=== PATIENT | male | born 1965 | race Caucasian/White ===

== ENCOUNTER 2016-08-14 10:45 | Emergency (ER) | payer MEDICARE ==
--- NOTE | ~2016-08-14 | CR181 ---
[facility] A Service of [facility] & [facility] RADIOLOGY TEXT RESULTS PATIENT: GREGORIO HARTMANN SR. LOCATION: SED : 67 UNIT #: [id number] AGE: [address]: Joanne Sepulveda SEX: M ORDER DR: [id number] [address] [address] [id number] MR#: [id number] Acc #: [id number] NAME: GREGORIO HARTMANN SR. : 1965 SEX: M STUDY DATE/TIME: 08/14/2016 10:57 UNIT: SED ROOM: STUDY DESCRIPTION: CR Lumbar Spine 2 or 3 Views Attending Physician: Joanne Sepulveda Pa-C Ordering Physician: Joanne Sepulveda Pa-C Primary Care Physician: No Primary Care Physician MEDICAL IMAGING REPORT This report is preliminary unless electronic signature is present. EXAM Lumbar spine series, 08/14/2016, 1057 hours. CLINICAL HISTORY Acute onset of low back pain radiating to right leg yesterday morning. No known injury. COMPARISON 09/20/2010 FINDINGS AP and lateral views of the lumbar spine and a coned lateral view of the lumbosacral junction were performed. There are 5 [id number] lumbar type vertebrae. There is disc height loss at L5-S1, progressive from 2010. There is mild disc height loss and endplate spurring at L4-5 similar to prior study. There is facet arthropathy L4-5 and L5-S1. This results in approximately 4 mm of retrolisthesis of L5 on S1 which is increased from 09/20/2010. IMPRESSION Interval progression of degenerative disc disease and facet arthropathy at L5-S1, greater than L4-5, as compared to 09/20/2010. This results in grade 1 (approximately 4 mm) retrolisthesis of L5 on S1, felt due to these chronic degenerative changes. No acute fracture is seen. Dictated by... Haydee Gayle M.D. THIS IS AN ELECTRONICALLY VERIFIED REPORT Haydee Gayle M.D. at 08/14/2016 2:28 PM STS. [facility] A Service of [facility] & [facility] RADIOLOGY TEXT RESULTS PATIENT: GREGORIO HARTMANN SR. LOCATION: [facility] [place] : 67 UNIT #: [id number] AGE: [address]: Joanne Sepulveda SEX: M ORDER DR: Og TD: 08/14/2016 12:30 JOB #: [id number] MEDICAL IMAGING REPORT Page 1 of 1
[~2016-08-14 10:45] MED LIST: ACETAMINOPHEN; ALEVE220 M1; ALEVE220 M1 PO; BENTYL10 MG; FLEXERIL10 M1 PO; FLEXERIL10 MG PO; IBUPROFEN; LIORESAL10 MG; LORTAB 5/500 TA1 TA1 PO; MEDROL DOSEPAK4 MG PO; MOBIC PO; MOBIC15 MG PO; OSTEO BI FLEX PO; PREDNISONE PO; TYLENOL325 M1 PO; ULTRAM; ULTRAM PO; VOLTAREN75 MG PO; ZANTAC; ZYRTEC1 MG/1 ML PO; ZYRTEC10 M2 PO; [UNRECOGNIZED DRUG - OTHER]
== END 2016-08-14 11:29 | disposition home or self-care (01) ==
LOC: SED 10:45
DX: M54.5 Low back pain (principal); F32.9 Major depressive disorder, single episode, unspecified
CPT/HCPCS: 72100; 96372; 99283; J1040; J1885

== ENCOUNTER → 2016-11-15 | Outpatient (CLI) | payer MEDICARE, OTHER ==
--- NOTE | ~2016-11-15 | MR148 ---
[facility] A Service of [facility] & [facility] RADIOLOGY TEXT RESULTS PATIENT: GREGORIO HARTMANN SR. LOCATION: [facility] : 67 UNIT #: [id number] AGE: [address]: Barron Martínez MD SEX: M ORDER DR: [id number] [address] [address] [id number] O MR#: [id number] Acc #: [id number] NAME: GREGORIO HARTMANN : 1965 SEX: M STUDY DATE/TIME: 11/15/2016 13:48 UNIT: [facility] ROOM: STUDY DESCRIPTION: MR Orbit Face and or Neck WWo Attending Physician: Barron Martínez M.D. Referring Physician: Barron Martínez M.D. Ordering Physician: Barron Martínez M.D. Primary Care Physician: [facility] REPORT This report is preliminary unless electronic signature is present. EXAM MRI of the neck with and without contrast dated 11/15/2016. COMPARISON None. HISTORY Patient had hearing test and it was worse in the right ear. Lump in the left side of the neck. Tingling sensation in the face for a year. FINDINGS Multisequence multiplanar imaging of the neck was obtained with and without contrast. 20 mL of MultiHance was administered intravenously. Patient did not complete the study and 11/15/2016. Though he was supposed to return, as he did not return, the incomplete study was given for evaluation on 11/17/2016. Motion artifact is noted in many of the images. No significant lymphadenopathy. Bilateral parotid glands, submandibular glands and thyroid gland do not demonstrate any significant abnormality. The various spaces of the neck including the pharyngeal mucosal space, parapharyngeal space and retropharyngeal space are unremarkable. Degenerative disc and facet changes are in the cervical spine. Cord is grossly unremarkable. There is asymmetrical thickening and enlargement of the left-sided strap muscle of the neck, focally at the level of the hypopharynx. Axial postcontrast T1 sequence was not obtained. Visualized limited coronal T1 postcontrast imaging appears to demonstrate some enhancement. There is nodular mucosal thickening in the left maxillary antrum, which could represent polyp or mucous retention cyst. Postcontrast axial images are not available to further delineate them. IMPRESSION 1. This is an incomplete study. Patient became claustrophobic on STS. [facility] A Service of [facility] & [facility] RADIOLOGY TEXT RESULTS PATIENT: GREGORIO HARTMANN SR. LOCATION: [facility] : 67 UNIT #: [id number] AGE: [address]: Barron Martínez MD SEX: M ORDER DR: postaxial contrast sequence and did not complete the study. Patient was supposed to return the next day, but refused and did not to it. This significantly limits evaluation. 2. The left parotid gland is within normal limits. 3. In the region of the left strap muscle of the neck, there is asymmetrical enlargement. It measures about 1.9 x 0.9 cm, is oval in shape, and focally noted at the level of the hypopharynx. The postcontrast coronal sequence does appear to demonstrate some enhancement. It does not have the typical appearance of an acute inflammation/infection or abscess. Inflammation of the muscles in the strap muscles is in the differential consideration. If the patient returns for additional imaging, it can be done without additional cost. It is probably a relatively slow growing or benign lesion given the lack of any significant lymphadenopathy. 4. Various other spaces of the neck do not demonstrate any acute abnormality. 5. Degenerative changes in the cervical spine. 6. Attempts are made to contact Dr. Barron Martínez at 05:00 p.m. on 11/17/2016. Findings were discussed with him on 4.35 pm on 11/20/16. Dictated by... Gerry Marquez M.D. THIS IS AN ELECTRONICALLY VERIFIED REPORT Gerry Marquez M.D. at 11/20/2016 4:38 PM CPR/pc TD: 11/18/2016 10:04 JOB #: [id number] MRI CENTER REPORT Page 1 of 1
== END | disposition home or self-care (01) ==
LOC: SMRI 13:17
DX: K11.21 Acute sialoadenitis (principal); F40.240 Claustrophobia; M62.89 Other specified disorders of muscle; M47.892 Other spondylosis, cervical region
CPT/HCPCS: 70543; A9581